=== PATIENT | female | born 1995 | race Caucasian/White ===

== ENCOUNTER 2017-09-26 14:20 | Emergency (ER) | payer BC ==
[2017-09-26 15:08] VITALS: BP 127/53
--- NOTE | 2017-09-26 15:24 | EDM.PDOC ---
ED HPI GENERAL MEDICAL PROBLEM - General Chief Complaint: Skin Complaint Stated Complaint: SKIN RASH ON BOTH ARMS Time Seen by Provider: 09/26/17 15:18 Source of Information: Reports: Patient History Limitations: Reports: No Limitations - History of Present Illness INITIAL COMMENTS - FREE TEXT/NARRATIVE: The patient presents with a rash to her hands and arm. She believes that started at work when washing the dishes. She is worried she may have been using to hot of water. She has no shortness of breath and no swelling in her throat. She has no allergies. She uses latex gloves at her work. Onset: Gradual Duration: Week(s): (1) Location: Reports: Upper Extremity, Left, Upper Extremity, Right Quality: Reports: Burning Severity: Moderate Improves with: Reports: None Worsens with: Reports: None Associated Symptoms: Reports: No Other Symptoms - Related Data Allergies Allergy/AdvReac Type Severity Reaction Status Date / Time No Known Allergies Allergy Verified 08/12/14 20:50 Home Meds: Home Meds Hydrocortisone [Hydrocortisone 1% Crm] 28.4 gm TOP BID #1 tube 09/26/17 [Rx] Prednisone [IJD: predniSONE] 40 mg PO WITHBREAKFAST #10 tab 09/26/17 [Rx] Past Medical History HEENT History: Reports: Impaired Vision Musculoskeletal History: Reports: Fracture Other Musculoskeletal History: left ankle Social & Family History - Tobacco Use Smoking Status *Q: Never Smoker - Caffeine Use Caffeine Use: Reports: Soda - Alcohol Use Days Per Week of Alcohol Use: 0 - Recreational Drug Use Recreational Drug Use: No ED ROS GENERAL - Review of Systems Review Of Systems: See Below Constitutional: Reports: No Symptoms HEENT: Reports: No Symptoms Respiratory: Reports: No Symptoms Cardiovascular: Reports: No Symptoms Endocrine: Reports: No Symptoms GI/Abdominal: Reports: No Symptoms : Reports: No Symptoms Musculoskeletal: Reports: No Symptoms Skin: Reports: Rash (to both hands and both arms) ED EXAM, SKIN/RASH Exam: See Below Exam Limited By: No Limitations General Appearance: Alert, No Apparent Distress Ears: Normal External Exam Nose: Normal Inspection Head: Atraumatic, Normocephalic Neck: Normal Inspection Respiratory/Chest: No Respiratory Distress, Lungs Clear, Normal Breath Sounds Cardiovascular: Regular Rate, Rhythm, No Edema, No Murmur GI/Abdominal: Soft, Non-Tender, No Organomegaly, No Mass Back Exam: Normal Inspection Extremities: Other (Macular rash to both hands that extend up the right wrist and arm and to the left wrist. There is some weaping from the skin of his right hand.) Course - Vital Signs Last Recorded V/S: Last Vital Signs Temp 98.7 F 09/26/17 15:04 Pulse 87 09/26/17 15:04 Resp 18 09/26/17 15:04 BP 127/53 L 09/26/17 15:04 Pulse Ox 100 09/26/17 15:04 - Re-Assessments/Exams Free Text/Narrative Re-Assessment/Exam: 09/26/17 15:29 This appears to be a contact dermatitis. This could be from the latex. I will get her on some prednisone and hydrocortisone. Departure - Departure Time of Disposition: 15:35 Disposition: Home, Self-Care 01 Condition: Good Clinical Impression: Contact dermatitis Qualifiers: Contact dermatitis type: allergic Contact dermatitis trigger: other trigger Qualified Code(s): L23.89 - Allergic contact dermatitis due to other agents; L23.8 - Allergic contact dermatitis due to other agents - Discharge Information Prescriptions: Hydrocortisone [Hydrocortisone 1% Crm] 28.4 gm TOP BID #1 tube Prednisone [IJD: predniSONE] 40 mg PO WITHBREAKFAST #10 tab Referrals: Nathalia Marshall, [employer] [Primary Care Provider] - 1 Week Forms: ED Department Discharge Additional Instructions: Avoid latex. Try to use nitril gloves. Take the prednisone daily for 5 days. Apply the hydrocortisone 2 times per day for 1 week. Please return if you are worse.
== END 2017-09-26 15:46 | disposition home or self-care (01) ==
LOC: JD.ED 14:20
DX: L23.89 Allergic contact dermatitis due to other agents (principal)
CPT/HCPCS: 99283